=== PATIENT | male | born 1965 | race Caucasian/White ===

== ENCOUNTER 2016-10-28 09:07 | Emergency (ER) | payer OTHER ==
[~2016-10-28 09:07] MED LIST: ALBUTEROL17 G1 IH; AMOXICILLIN PO; BYSTOLIC10 MG PO; CLONIDINE HCL0.1 MG PO; HYDROCODON-ACE1 EAC5 PO; METOPROLOL-HCTZ1 TA1 PO; NO MEDICATIONS; NORVASC PO; NORVASC10 MG PO; PREDNISONE10 MG PO; SYMBICORT INH
[2016-10-28 10:10] LABS: URINE SOURCE CLEAN CATCH
[2016-10-28 10:39] LABS: URINE APPEARANCE CLEAR; URINE BILIRUBIN NEG (NEG); URINE BLOOD NEG (NEG); URINE COLOR YELLOW; URINE GLUCOSE NEG (NEG); URINE KETONE NEG (NEG); URINE LEUKOCYTE ESTERASE NEG (NEG); URINE NITRATE NEG (NEG); URINE PROTEIN NEG (NEG); URINE SPECIFIC GRAVITY 1.015 (1.003-1.035); URINE UROBILINOGEN 0.2 MG/DL (NEG)
[2016-10-28 10:53] LABS: UWBCS1 AUWI 0-2 (0-5)
[2016-10-28 10:54] LABS: URINE AMORPHOUS SEDIMENT AMORP URATES; URINE YEAST PRESENT
[2016-10-28 10:55] LABS: CULTURE INDICATED? NO
[2016-10-29 16:58] LABS: CHLAMYDIA TRACH Not Detected (Not Detected); N GONOR Not Detected (Not Detected)
== END 2016-10-28 11:30 | disposition home or self-care (01) ==
LOC: CED 09:07 → CFTX 09:07
PROVIDERS: Nurse Practitioner
DX: A60.00 Herpesviral infection of urogenital system, unspecified (principal); I10 Essential (primary) hypertension; E11.9 Type 2 diabetes mellitus without complications; J45.909 Unspecified asthma, uncomplicated
CPT/HCPCS: 81003; 82947; 87253; 87491; 87591; 99283

== ENCOUNTER 2016-11-25 10:48 | Emergency (ER) | payer OTHER ==
--- NOTE | ~2016-11-25 | CR72 ---
[facility] A Service of [facility] & [facility] RADIOLOGY TEXT RESULTS PATIENT: AMANDA ALEXANDRE LOCATION: [facility] : 63 UNIT #: [id number] AGE: [address]: Salo Alcocer MD SEX: M ORDER DR: [id number] [facility] [address] [facility] [address]. [place], [place] [address] [id number] MR#: [id number] Acc #: [id number] NAME: AMANDA ALEXANDRE : 1965 SEX: M STUDY DATE/TIME: 11/25/2016 UNIT: [facility] ROOM: STUDY DESCRIPTION: CR Chest Single View Portable Attending Physician: Salo Alcocer M.D. Ordering Physician: Salo Alcocer M.D. Primary Care Physician: Perry Cain M.D. MEDICAL IMAGING REPORT This report is preliminary unless electronic signature is present EXAM Chest portable 11/25/2016 1246 hours HISTORY 51-year-old man with shortness of air, cough, sore throat and earache for 2 days. History of diabetes and heart disease with hypertension. COMPARISON 08/23/2014. FINDINGS Portable upright chest demonstrates stable mild cardiomegaly and a mildly tortuous aorta. Pulmonary vascularity is normal. The lungs are clear. There is no effusion or pneumothorax. IMPRESSION There is stable mild cardiomegaly and a tortuous aorta, unchanged from 08/23/2014. The lungs are clear and there are no effusions. Dictated by... So Garcia M.D. THIS IS AN ELECTRONICALLY VERIFIED REPORT So Garcia M.D. at 11/26/2016 9:29 AM RIYA/arslan TD: 11/25/2016 18:37 JOB #: [id number] MEDICAL IMAGING REPORT Page 1 of 1 COPY
[2016-11-25 12:58] LABS: BASOPHIL# 0.1 X10e3 (0-0.3); BASOPHIL% 0.9 % (0-2.5); DIFF IND NO; EOSINOPHIL# 0.2 X10e3 (0-0.7); EOSINOPHIL% 1.5 % (0.0-7.0); HEMATOCRIT 38.8 % (38.0-50.0); HEMOGLOBIN 12.6 gm/dL (13.0-16.0); LYMPHOCYTE# 2.5 X10e3 (1.0-3.5); LYMPHOCYTE% 16.9 % (17.0-45.0); MEAN CELL VOLUME 81.8 FL (83-96); MEAN CORPUSCULAR HEMOGLOBIN 26.7 PG (28-34); MEAN CORPUSCULAR HGB CONC 32.6 g/dL (30-36); MEAN PLATELET VOLUME 8.4 FL (6.5-11.5); MONOCYTE# 1.3 X10e3 (0-1.0); MONOCYTE% 8.9 % (3.0-12.0); NEUTROPHIL# 10.8 X10e3 (1.5-7.1); NEUTROPHIL% 71.8 % (40-75); PLATELET COUNT 222 X10e3 (140-420); RED BLOOD COUNT 4.74 X10e (3.90-5.60); RED CELL DISTRIBUTION WIDTH 14.8 % (11.0-15.5)
[2016-11-25 13:17] LABS: CALCIUM SERUM 8.7 mg/dL (8.4-10.2); CREATININE SERUM 1.1 mg/dL (0.6-1.4); GLOM FILT RATE Estimated 76.8 mL/min (>60); POTASSIUM 3.4 mmol/L (3.5-5.1)
== END 2016-11-25 14:59 | disposition home or self-care (01) ==
LOC: CED 10:48
PROVIDERS: Emergency Medicine
DX: J06.9 Acute upper respiratory infection, unspecified (principal); J45.909 Unspecified asthma, uncomplicated
CPT/HCPCS: 71010; 80048; 85025; 87651; 94640; 96374; 99285; J1953; J2060; J2930